=== PATIENT | female | born 1970 | race Caucasian/White ===

== ENCOUNTER → 2024-03-03 06:31 | Day surgery (SDC) | payer OTHER, SELFPAY | LOC: GI 06:31 | PROVIDERS: ATTENDING PHYSICIAN Internal Medicine | DX: Z12.11 Encounter for screening for malignant neoplasm of colon (principal); K63.89 Other specified diseases of intestine; K64.4 Residual hemorrhoidal skin tags; Z86.010 Personal history of colon polyps | CPT/HCPCS: G0105 ==

== ENCOUNTER → 2024-08-02 16:32 | Outpatient (REF) | payer BC, SELFPAY | LOC: CLAB 16:32 | PROVIDERS: ATTENDING PHYSICIAN Orthopaedic Surgery | DX: R22.32 Localized swelling, mass and lump, left upper limb (principal) | CPT/HCPCS: 88304 ==

== ENCOUNTER → 2024-08-10 15:21 | Outpatient (REF) | payer BC, SELFPAY | LOC: WDC 15:21 | PROVIDERS: ATTENDING PHYSICIAN Family Medicine | DX: Z12.31 Encounter for screening mammogram for malignant neoplasm of breast (principal) | CPT/HCPCS: 77063; 77067 ==

== ENCOUNTER → 2024-08-24 15:04 | Outpatient (REF) | payer BC, SELFPAY | LOC: RAD 15:04 | PROVIDERS: ATTENDING PHYSICIAN Family Medicine | DX: M79.671 Pain in right foot (principal); M79.672 Pain in left foot | CPT/HCPCS: 73630 ==

== ENCOUNTER → 2025-02-16 12:48 | Outpatient (REF) | payer BC, SELFPAY | LOC: HWRAD 12:48 | PROVIDERS: ATTENDING PHYSICIAN Family Medicine | DX: Z78.0 Asymptomatic menopausal state (principal) | CPT/HCPCS: 77080 ==

== ENCOUNTER → 2025-02-25 14:47 | Outpatient (REF) | payer BC, SELFPAY | LOC: HWRAD 14:47 | PROVIDERS: ATTENDING PHYSICIAN Specialist; FAMILY PHYSICIAN Family Medicine | DX: R94.4 Abnormal results of kidney function studies (principal) | CPT/HCPCS: 76770 ==